=== PATIENT | female | born 1985 | race Caucasian/White ===

== ENCOUNTER 2016-06-02 17:49 | Emergency (ER) | END 2016-06-02 20:22 | disposition home or self-care (01) ==

== ENCOUNTER 2016-12-06 11:00 | Emergency (ER) | payer MEDICAID ==
[2016-12-06 11:25] LABS: BILIRUBIN,URINE NEGATIVE (NEGATIVE)
[2016-12-06 11:35] LABS: HCG UR QUAL NEGATIVE; UA w/ MICROSCOPIC CHARGE YES
[2016-12-06 11:36] LABS: UR CULTURE IF IND NOT INDICATED; WBC,URINE >25 /HPF (0-5)
[2016-12-06] MEDS ORDERED: CIPROFLOXACIN 250 MG TABLET PO STA (11:38)
[2016-12-06] MEDS ORDERED: PHENAZOPYRIDINE 100 MG TABLET PO STA (11:38)
--- NOTE | 2016-12-06 11:41 | ED Physician Documentation ---
History of Present Illness - Stated complaint Stated Complaint: FEMALE - Chief complaint Chief Complaint: UTI - History obtained from History obtained from: Patient - Additonal information Additional information: Patient is a 30-year-old female who is otherwise healthy. She presents with lower urinary symptoms off and on for about a week. She complains of burning frequency and urgency. She taken [id number] medication got better and now had recurrence of symptoms over the last day. She denies any fever or chills. She has no complaints of abdominal pain, nausea, constipation, or diarrhea. There is no complaints of flank pain. Review of systems: For pertinent positive and negative questions for the review of systems please see history of present illness. Otherwise all other systems have been reviewed and are negative. Dragon disclaimer: Parts of this medical record were created using voice recognition technology. Because of the inherent limitations of this system occasional same sounding word substitutions do occur and persist despite proofreading. Please read the document for context. 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 - Present Medications Home Medications: Ambulatory Orders Medication Instructions Recorded Confirmed Ciprofloxacin HCl [Cipro] 500 mg PO BID #6 tablet 12/06/16 Phenazopyridine HCl [Pyridium] 200 mg PO TID #9 tablet 12/06/16 - Allergies Allergies/Adverse Reactions: Allergies Allergy/AdvReac Type Severity Reaction Status Date / Time No Known Drug Allergies Allergy Verified 06/02/16 17:53 - Social History Does the pt smoke?: No Smoking Status: Never smoker Does the pt drink ETOH?: No Does the pt have substance abuse?: No - Immunizations Immunizations are current?: Yes - POLST Patient has POLST: No PD ED PE NORMAL - General General: Alert and oriented X 3, No acute distress - Cardiac Cardiac: RRR, No murmur - Respiratory Respiratory: No respiratory distress, Clear bilaterally - Abdomen Abdomen: Normal bowel sounds, Soft, Non tender, Non distended - Female Female : Deferred - Extremities Extremities: No deformity - Neuro Neuro: Alert and oriented X 3 - Psych Psych: Normal mood, Normal affect Results - Vitals Vitals: Vital Signs - 24 hr 12/06/16 11:03 Temperature 35.9 C L Heart Rate 67 Respiratory 16 Rate Blood Pressure 132/76 H O2 Saturation 99 Oxygen O2 Source Room air - Labs Labs: Laboratory Tests 12/06/16 11:15 Urine Color YELLOW Urine Clarity CLOUDY Urine pH 6.0 Ur Specific [place] 1.020 Urine Protein NEGATIVE Urine Glucose (UA) NEGATIVE Urine Ketones NEGATIVE Urine Occult Blood MODERATE H Urine Nitrite NEGATIVE Urine Bilirubin NEGATIVE Urine Urobilinogen 0.2 (NORMAL) Ur Leukocyte Esterase SMALL H Urine RBC 0-5 Urine WBC >25 H Ur Squamous Epith Cells MANY Squamous H Urine Bacteria Few Ur Microscopic Review INDICATED Urine Culture Comments NOT INDICATED Urine HCG, Qual NEGATIVE PD MEDICAL DECISION MAKING - ED course ED course: Patient is well-appearing young female with what sounds like uncomplicated lower urinary tract infection. She does have pyuria with greater than 25 white cells per high-powered field. She is not and there is no history or exam findings suggesting pyelonephritis. She is given ciprofloxacin and Pyridium here and will be maintained on the same regimen to outpatient. Disposition: To home clinical impression: 1.Acute lower urinary tract infection Departure - Departure Disposition: 01 Home, Self Care Clinical Impression: Cystitis Urinary tract infection Qualifiers: Encounter type: initial encounter Condition: Good Instructions: ED UTI Cystitis Female Prescriptions: Ciprofloxacin HCl [Cipro] 500 mg PO BID #6 tablet Phenazopyridine HCl [Pyridium] 200 mg PO TID #9 tablet
[2016-12-06] MEDS ORDERED: CIPROFLOXACIN 250 MG TABLET PO ONE (11:44)
[2016-12-06] MEDS ORDERED: PHENAZOPYRIDINE 100 MG TABLET PO ONE (11:44)
[2016-12-06 11:56] VITALS: BP 119/81
== END 2016-12-06 11:52 | disposition home or self-care (01) ==
LOC: ED 11:00
DX: N30.90 Cystitis, unspecified without hematuria (principal)
CPT/HCPCS: 81001; 81025; 99283; A9270; 81003; 87086

== ENCOUNTER 2017-09-06 15:51 | Emergency (ER) | payer MEDICAID ==
[2017-09-06 15:59] VITALS: BP 110/72
--- NOTE | 2017-09-06 16:17 | ED Physician Documentation ---
History of Present Illness - Stated complaint Stated Complaint: COUGH/R EAR PX - Chief complaint Chief Complaint: Heent - Additonal information Additional information: hx from pt 31 female approx a week of heavy coughing, so bad she vomits at times and now ear pain as well no fever causing migraines too not preg has IUD no leg swelling no travel or sick contacts Review of Systems Constitutional: denies: Fever Ears: reports: Ear pain Nose: reports: Congestion Respiratory: reports: Cough GI: reports: Vomiting (post tussive) : denies: Now EGA Musculoskeletal: denies: Extremity swelling PD PAST MEDICAL HISTORY - Past Medical History Cardiovascular: None Respiratory: Asthma Neuro: Headache/migraine Endocrine/Autoimmune: None GI: None HUMAN RESOURCES COMMUNICATIONS MANAGER: None : None HEENT: None Psych: None Musculoskeletal: None Derm: Eczema Other Past Medical History: Using Mirena - Past 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 Past 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: Yes /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 - Present Medications Home Medications: Ambulatory Orders Medication Instructions Recorded Confirmed Azithromycin [Zithromax] 250 mg PO DAILY #6 tablet 09/06/17 Benzonatate [Tessalon] 100 mg PO TID PRN #20 capsule 09/06/17 guaiFENesin/DEXTROMETHORPHAN 10 ml PO Q6H PRN #120 ml 09/06/17 [Robitussin Dm] - Allergies Allergies/Adverse Reactions: Allergies Allergy/AdvReac Type Severity Reaction Status Date / Time No Known Drug Allergies Allergy Verified 09/06/17 15:59 - Social History Does the pt smoke?: No Smoking Status: Never smoker Does the pt drink ETOH?: No Does the pt have substance abuse?: No - Immunizations Immunizations are current?: Yes - POLST Patient has POLST: No PD ED PE NORMAL - Vitals Vital signs reviewed: Yes - HEENT HEENT: No: Ears normal (R AOM - red dull loss of landmarks, L occluded) - Neck Neck: Supple, no meningeal sign - Cardiac Cardiac: RRR - Respiratory Respiratory: No respiratory distress, Clear bilaterally (slightly dimished effort martha but clear s wheeze or ronchi) - Abdomen Abdomen: Soft, Non tender Results - Vitals Vitals: Vital Signs - 24 hr 09/06/17 15:56 Temperature 36.6 C Heart Rate 71 Respiratory 16 Rate Blood Pressure 110/72 O2 Saturation 99 Oxygen O2 Source Room air PD MEDICAL DECISION MAKING - ED course ED course: d/w pt that she has AOM so will rx zmax which would cover pna as well and defer expense and radiation of CXR Departure - Departure Disposition: 01 Home, Self Care Clinical Impression: Otitis media Condition: Good Instructions: ED Otitis Media Acute Adult Prescriptions: Azithromycin [Zithromax] 250 mg PO DAILY #6 tablet Benzonatate [Tessalon] 100 mg PO TID PRN #20 capsule PRN Reason: to ease cough guaiFENesin/DEXTROMETHORPHAN [Robitussin Dm] 10 ml PO Q6H PRN #120 ml PRN Reason: Cough Forms: Activity restrictions
== END 2017-09-06 16:27 | disposition home or self-care (01) ==
LOC: ED 15:51
DX: H66.90 Otitis media, unspecified, unspecified ear (principal)
CPT/HCPCS: 99283

== ENCOUNTER 2018-03-17 09:19 | Emergency (ER) | payer SELFPAY ==
[2018-03-17 09:31] VITALS: BP 132/71
[2018-03-17 10:06] LABS: BILIRUBIN,URINE NEGATIVE (NEGATIVE); GLUCOSE, URINE (UA) NEGATIVE (NEGATIVE); KETONES,URINE (UA) NEGATIVE (NEGATIVE); LEUKOCYTE ESTERASE, URINE NEGATIVE (NEGATIVE); NITRITE,URINE NEGATIVE (NEGATIVE); OCCULT BLOOD,URINE NEGATIVE (NEGATIVE); PROTEIN,URINE NEGATIVE (NEGATIVE); UROBILINOGEN,URINE 0.2 (NORMAL) E.U./dL (NORMAL)
[2018-03-17 10:13] LABS: CLARITY,URINE CLEAR (CLEAR); HCG UR QUAL NEGATIVE
--- NOTE | 2018-03-17 10:30 | ED Physician Documentation ---
PD HPI FEMALE - Stated complaint Stated Complaint: FEMALE - Chief complaint Chief Complaint: General - History obtained from History obtained from: Patient - History of Present Illness Timing - onset: How many days ago (3) Timing - duration: Days (3) Timing - details: Gradual onset, Still present Associated symptoms: Dysuria, Urinary frequency. No: Vaginal discharge, Genital sore/lesion Similar symptoms before: Diagnosis (UTI) Recently seen: Not recently seen - Additional information Additional information: 32-year-old female with a lifelong history of urinary tract infections frequently has developed symptoms again for the past 3 days of urinary urgency frequency and dysuria. She denies any evidence of herpes outbreak she denies any history of herpes and she does not believe that she has been dehydrated. She states the symptoms are similar to what she has had previously multiple times over the years. 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 - Present Medications Home Medications: Ambulatory Orders Medication Instructions Recorded Confirmed Sulfamethoxazole/Trimethoprim 1 each PO BID #6 tablet 03/17/18 [Sulfamethoxazole-Tmp Ds Tablet] - Allergies Allergies/Adverse Reactions: Allergies Allergy/AdvReac Type Severity Reaction Status Date / Time No Known Drug Allergies Allergy Verified 03/17/18 09:27 - Social History Does the pt smoke?: No Smoking Status: Never smoker Does the pt drink ETOH?: No Does the pt have substance abuse?: No - Immunizations Immunizations are current?: Yes - POLST Patient has POLST: No PD ED PE NORMAL - Vitals Vital signs reviewed: Yes (hypertensive mild ) - General General: Alert and oriented X 3, No acute distress, Well developed/nourished - HEENT HEENT: Atraumatic, PERRL, EOMI - Respiratory Respiratory: No respiratory distress - Back Back: No CVA TTP, No spinal TTP - Derm Derm: Normal color, Warm and dry, No rash - Extremities Extremities: No deformity, No edema - Neuro Neuro: Alert and oriented X 3, 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, No motor deficit, No sensory deficit, Normal speech Eye Opening: Spontaneous Motor: Obeys Commands Verbal: Oriented GCS Score: 15 - Psych Psych: Normal mood, Normal affect Results - Vitals Vitals: Vital Signs - 24 hr 03/17/18 09:26 Temperature 36.1 C L Heart Rate 77 Respiratory 16 Rate Blood Pressure 132/71 H O2 Saturation 99 Oxygen O2 Source Room air - Labs Labs: Laboratory Tests 03/17/18 09:50 Urine Color YELLOW Urine Clarity CLEAR Urine pH 7.0 Ur Specific [place] 1.020 Urine Protein NEGATIVE Urine Glucose (UA) NEGATIVE Urine Ketones NEGATIVE Urine Occult Blood NEGATIVE Urine Nitrite NEGATIVE Urine Bilirubin NEGATIVE Urine Urobilinogen 0.2 (NORMAL) Ur Leukocyte Esterase NEGATIVE Ur Microscopic Review NOT INDICATED Urine Culture Comments NOT INDICATED Urine HCG, Qual NEGATIVE PD MEDICAL DECISION MAKING - ED course Complexity details: reviewed old records, reviewed results, considered differential, d/w patient ED course: 32-year-old female with typical symptoms of urinary tract infection for her has a negative urinalysis here in the laboratory. She has had experience with urinary tract infection and states that her symptoms are completely similar. Departure - Departure Disposition: 01 Home, Self Care Clinical Impression: Urinary tract infection Qualifiers: Urinary tract infection type: acute cystitis Hematuria presence: without hematuria Qualified Code(s): N30.00 - Acute cystitis without hematuria Condition: Stable Instructions: ED UTI Cystitis Female Follow-Up: [facility] [Provider Group] Prescriptions: Sulfamethoxazole/Trimethoprim [Sulfamethoxazole-Tmp Ds Tablet] 1 each PO BID #6 tablet
== END 2018-03-17 10:36 | disposition home or self-care (01) ==
LOC: ED 09:19
DX: N30.00 Acute cystitis without hematuria (principal)
CPT/HCPCS: 81001; 81003; 81025; 87086; 99283